=== PATIENT | female | born 1985 | race Caucasian/White ===

== ENCOUNTER 2016-08-22 12:19 | Inpatient (IN) | payer OTHER ==
[~2016-08-22] VITALS: Ht 154.9 cm; Wt 92.5 kg
[~2016-08-22 12:19] MED LIST: HYDR-3580 PO; PRENCAP6 PO
--- NOTE | 2016-10-17 13:47 | MH ---
cc: CINTHIA MCKEON M.D. DATE OF ADMISSION: 10/18/2016 DATE OF : 1985 CHIEF COMPLAINT Term anterior for repeat elective section and tubal ligation. HISTORY OF PRESENT ILLNESS The patient is a 31-year-old female, 3, para 2, two previous sections, who presents at 39 weeks for elective repeat with elective sterilization by tubal ligation. The patient denies any significant complaints related to uterine contractions, bleeding, shortness of breath, chest pain, fever, nausea, vomiting or vaginal bleeding. PAST MEDICAL/OB HISTORY The patient has an uncomplicated history. The patient's blood type is O+. She is group-B strep negative. The patient has a history of diet-controlled gestational diabetes which has been stable throughout. Estimated weight is approximately 7 pounds 8 ounces. The patient has been diagnosed as a cystic fibrosis carrier. Her is negative. ALLERGIES CODEINE. MEDICATIONS She currently takes vitamins only. PAST SURGICAL HISTORY section x2 in 2009 and 2012 with healthy male infants. FAMILY HISTORY Noncontributory. 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 She denies any use of alcohol, tobacco or illicit substances. PHYSICAL EXAMINATION GENERAL: The patient is a well-appearing, well-nourished female in no acute distress. VITAL SIGNS: Stable. Blood pressure 108/62. Weight 207 pounds. She is 5 feet 1 inch. HEENT/NECK: No adenopathy or thyromegaly. LUNGS: Clear in all [place]. CARDIAC: Regular rate and rhythm without murmur, rub or gallop. ABDOMEN: Gravid, full-term. PELVIC: Deferred. EXTREMITIES: Symmetrical full range of motion. No cyanosis, clubbing or edema. NEUROLOGIC: Grossly intact, nonfocal. ASSESSMENT AND PLAN The patient has a 39-week intrauterine gestation with an estimated date of confinement of October 25, 2016 for elective repeat section and tubal ligation. GBS status is negative. The patient is a cystic fibrosis carrier. She has a history of mild gestational diabetes with excellent control with diet alone. MD JORDON Peñaloza/AMA /1:16 PM /1:34 PM
[2016-10-18] VITALS (11 sets, daily range): BP systolic 84–119; BP diastolic 52–62; PULSE 18–91; RESP 18; TEMP 97.1–98; O2SAT 96–97
[2016-10-18] MEDS ORDERED: CITRIC ACID-SODIUM CITRATE LIQ 30 ML UDC PO SCH (07:45)
[2016-10-18 07:48] LABS: AUTOMATED NEUTROPHIL # 9.1 TH/MM3 (1.8-7.7); BASOPHIL % 0.1 % (0.0-2.0); EOSINOPHIL # 0.1 TH/MM3 (0-0.4); HEMATOCRIT 34.6 % (35.0-46.0); HEMO FLAGS DIFF FINAL; LYMPH % 14.5 % (9.0-44.0); LYMPHOCYTE # 1.7 TH/MM3 (1.0-4.8); MEAN CORPUSCULAR HEMOGLOBIN 27.6 PG (27.0-34.0); MEAN CORPUSCULAR HGB CONC 33.3 % (32.0-36.0); MONO % 5.4 % (0.0-8.0); PLATELET COUNT 252 TH/MM3 (150-450); RED BLOOD COUNT 4.17 MIL/MM3 (4.00-5.30); RED CELL DISTRIBUTION WIDTH 14.4 % (11.6-17.2); WHITE BLOOD COUNT 11.6 TH/MM3 (4.0-11.0)
[2016-10-18] MEDS ORDERED: LACTATED RINGER'S 1000 ML IV ONE (08:00)
[2016-10-18] MEDS ORDERED: ceFAZolin 2 GM PREMIX 50 ML IV SCH (08:00)
[2016-10-18] MEDS: LACTATED RINGER'S 1000 ML IV SCH (08:05)
[2016-10-18 08:17] LABS: BACTERIA, URINE RARE /hpf; BLOOD, URINE NEG (NEG); COMMENT (UR) CULT NOT INDICATED; CULTURE IF INDICATED CULT NOT INDICATED; GLUCOSE,URINE NEG (NEG); KETONE, URINE 10 mg/dL (NEG); MUCUS URINE FEW /lpf (OCC); NITRITE,URINE NEG (NEG); SQUAMOUS EPITHELIAL CELL URINE 3 /hpf (0-5); TRANSITIONAL EPI CELLS, URINE <1 /hpf; URINE COLOR YELLOW (YELLW/STRAW)
[2016-10-18] MEDS ORDERED: ONDANSETRON HCL 4 MG/2 ML VIAL ONE (08:19)
[2016-10-18] MEDS ORDERED: OXYTOCIN 10 UNIT/ML AMP ONE (08:19)
[2016-10-18] MEDS ORDERED: MORPHINE SULFATE PF 5 MG/10 ML VIAL ONE (08:19)
[2016-10-18] MEDS ORDERED: ACETAMINOPHEN 1000 MG/100 ML VIAL IV ONE ×2 (08:20→08:30)
[2016-10-18] MEDS ORDERED: ONDANSETRON HCL 4 MG/2 ML VIAL IV PUSH PRN (08:30)
[2016-10-18] MEDS ORDERED: OXYTOCIN 30 UNITS-500ML PREMIX 500 ML IV ONE (08:30)
[2016-10-18] MEDS ORDERED: ACETAMINOPHEN/HYDROcodone 325 MG/10 MG TAB PO PRN (08:30)
[2016-10-18] MEDS ORDERED: SODIUM CHLORIDE 0.9% FLUSH 10 ML FLUSH IV FLUSH PRN (08:30)
[2016-10-18] MEDS ORDERED: ACETAMINOPHEN 325 MG TAB PO PRN (08:30)
[2016-10-18] MEDS ORDERED: SIMETHICONE 80 MG CHEWABLE TAB PO PRN (08:30)
[2016-10-18] MEDS ORDERED: EPIDURAL-NALOXONE HCL 0.4 MG/ML AMP IV PRN (08:58)
[2016-10-18] MEDS ORDERED: EPIDURAL-NO SYSTEMIC NARCOTICS PRN (08:58)
[2016-10-18] MEDS ORDERED: EPIDURAL-DIPHENHYDRAMINE HCL 50 MG CAP PO PRN (08:58)
[2016-10-18] MEDS ORDERED: EPIDURAL-DO NOT ADMINISTER ANTICOAGULANTS PRN (08:58)
[2016-10-18] MEDS ORDERED: EPIDURAL-DIPHENHYDRAMINE HCL 50 MG/ML VIAL IV PUSH PRN (08:58)
[2016-10-18] MEDS: SODIUM CHLORIDE 0.9% FLUSH 10 ML FLUSH IV FLUSH SCH ×2 (09:00→21:00)
--- NOTE | 2016-10-18 09:48 | PD.OB.DELI ---
Procedure Note Section Procedure Performed by Ricci Michelle Procedure: Repeat Low Transverse Sec Indication for delivery: Desired elective repeat Informed consent obtained: For anesthesia, For procedure Confirmed correct: Patient, Procedure, Site, Time-out taken Anesthesia: Spinal Medication prior to procedure: As documented in eMAR Monitoring during procedure: Blood pressure monitoring, manager monitoring, doppler, monitor, Pulse oximetry Urinary catheter: Inserted using sterile technique, To dependent drainage Sterile preparation: Duraprep, In usual fashion Position: Supine with wedge to right side, Supine with safety belt applied Operative Features Skin Incision: Pfannenstiel Uterine Incision: Low transverse w/knife / scissors Membranes Ruptured: Artificially Presentation: Occiput anterior Delivery of infant: Assisted (Kiwi vacuum x1 pull) : Male One Minute : 9 Five Minute : 9 Weight: 7/15 Status of infant: Viable Placenta delivered: Intact Medications: Antibiotics, Oxytocin Procedure tolerated: Well Maternal Condition: Stable Condition: Stable Ricci Michelle MD Oct 18, 2016 09:48
[2016-10-18] MEDS ORDERED: LACTATED RINGER'S 1000 ML INJ 1,000 ML IV ONE (10:06)
[2016-10-18] MEDS ORDERED: ePHEDrine/NS 50 MG/5 ML SYR IV ONE (10:06)
[2016-10-18] MEDS ORDERED: OXYTOCIN 30 UNITS-500ML PREMIX 500 ML ONE (10:15)
[2016-10-18] MEDS ORDERED: LACTATED RINGER'S 1000 ML INJ 1,000 ML IV SCH (13:18)
[2016-10-18] MEDS ORDERED: PROMETHAZINE INJ 25 MG/ML VIAL IM PRN (16:30)
[2016-10-18] MEDS ORDERED: OXYTOCIN 30 UNITS-500ML PREMIX 500 ML IV PRN (18:30)
[2016-10-19 00:10] VITALS: BP 84/50; PULSE 72; RESP 20
[2016-10-19] MEDS: ACETAMINOPHEN/HYDROcodone 325 MG/5 MG TAB PO PRN ×2 (00:17→16:51)
[2016-10-19] MEDS: DOCUSATE SODIUM 50 MG/SENNA 8.6 MG TAB PO PRN (00:17)
[2016-10-19] MEDS: IBUPROFEN 600 MG TAB PO PRN ×3 (00:17→16:51)
[2016-10-19 00:25] VITALS: TEMP 97.9
[2016-10-19 03:38] VITALS: BP 83/48; PULSE 64; RESP 18; TEMP 98
[2016-10-19 06:00] LABS: AUTOMATED NEUTROPHIL # 10.5 TH/MM3 (1.8-7.7); BASOPHIL % 0.2 % (0.0-2.0); EOSINOPHIL # 0.1 TH/MM3 (0-0.4); HEMATOCRIT 30.5 % (35.0-46.0); HEMO FLAGS DIFF FINAL; LYMPH % 12.2 % (9.0-44.0); LYMPHOCYTE # 1.6 TH/MM3 (1.0-4.8); MEAN CELL VOLUME 84.3 FL (80.0-100.0); MEAN CORPUSCULAR HEMOGLOBIN 27.8 PG (27.0-34.0); MEAN CORPUSCULAR HGB CONC 32.9 % (32.0-36.0); MONO % 6.2 % (0.0-8.0); NEUT % 80.4 % (16.0-70.0); PLATELET COUNT 210 TH/MM3 (150-450); RED BLOOD COUNT 3.62 MIL/MM3 (4.00-5.30); RED CELL DISTRIBUTION WIDTH 14.7 % (11.6-17.2); WHITE BLOOD COUNT 13.1 TH/MM3 (4.0-11.0)
--- NOTE | 2016-10-19 07:49 | HHI.OB ---
Subjective Post Operative Day: 1 Remarks POD#1, Doing well Objective Vitals/I&O Vital Signs Date Time Temp Pulse Resp B/P Pulse Ox O2 Delivery O2 Flow Rate FiO2 10/19/16 07:05 20 10/19/16 03:38 83/48 10/19/16 03:38 98.0 64 18 10/19/16 01:17 18 10/19/16 00:25 97.9 10/19/16 00:10 72 20 84/50 10/18/16 22:14 18 10/18/16 22:14 69 84/58 10/18/16 22:14 98.0 10/18/16 16:40 97.1 81 18 92/62 10/18/16 11:13 97.6 10/18/16 11:13 80 18 94/62 10/18/16 10:55 78 18 103/55 97 10/18/16 10:49 97.6 10/18/16 10:40 75 18 109/59 97 10/18/16 10:25 18 10/18/16 10:25 76 114/55 97 10/18/16 10:11 96 10/18/16 10:10 112/52 10/18/16 10:10 91 10/18/16 10:10 18 18 10/18/16 09:56 90 10/18/16 09:56 20 10/18/16 09:55 119/55 10/18/16 09:55 97.9 18 97 Result Diagram: 10/19/16 0459 Objective Remarks GENERAL: Well-nourished, well-developed patient. CARDIOVASCULAR: Regular rate and rhythm without murmurs, gallops, or rubs. RESPIRATORY: Breath sounds equal bilaterally. No accessory muscle use. ABDOMEN/GI: Abdomen soft, non-tender, bowel sounds present. Incision: Clean, dry and intact. Fundus: Firm, non-tender at umbilicus. GENITOURINARY: Light to moderate bleeding. EXTREMITIES: No cyanosis or edema, non-tender, without signs of DVT. Medications and IVs Current Medications Medications (Trade) Dose Ordered Sig/Danial Route Start Time Stop Time Status Last Admin Lactated Ringer's 1,000 ml @ 150 mls/hr Q6H40M IV 10/18/16 08:30 10/18/16 08:05 (Lr 1000 ml Inj) 1,000 ml @ 100 mls/hr Q10H IV 10/18/16 13:18 10/19/16 09:17 (NS Flush) 2 ml BID IV FLUSH 10/18/16 09:00 (NS Flush) 2 ml UNSCH PRN IV FLUSH 10/18/16 08:30 (Mylicon Chew) 80 mg QID PRN PO 10/18/16 08:30 (Tylenol) 650 mg Q6H PRN PO 10/18/16 08:30 (Motrin) 600 mg Q6H PRN PO 10/18/16 08:30 10/19/16 06:05 (Deb-Colace) 2 tab Q12H PRN PO 10/18/16 08:30 10/19/16 00:17 (M-M-R Ii Inj) 0.5 ml ONCE ONCE SQ 10/19/16 16:00 10/19/16 16:01 (Boostrix Inj) 0.5 ml ONCE ONCE IM 10/19/16 16:00 10/19/16 16:01 (Zofran Inj) 4 mg Q6H PRN IV PUSH 10/18/16 08:30 10/18/16 14:13 ([place] 5-325 Mg) 1 tab Q4H PRN PO 10/18/16 08:30 10/19/16 00:17 ([place] 10-325 Mg) 1 tab Q4H PRN PO 10/18/16 08:30 Miscellaneous Information NO SYSTEMIC NARCOTICS TO BE GIVEN FO... UNSCH PRN .XX 10/18/16 08:58 10/19/16 08:57 (Narcan Inj) 0.4 mg UNSCH PRN IV 10/18/16 08:58 10/19/16 08:57 (Benadryl Inj) 25 mg Q6H PRN IV PUSH 10/18/16 08:58 10/19/16 08:57 (Benadryl) 50 mg Q6H PRN PO 10/18/16 08:58 10/19/16 08:57 Miscellaneous Information ALL NURSING DEPARTMENTS UNSCH PRN .XX 10/18/16 08:58 10/19/16 08:57 (Phenergan Inj) 25 mg Q6H PRN IM 10/18/16 16:30 10/18/16 16:34 Assessment/Plan Assessment and Plan POD#1; Stable,good pain control. Discharge Planning Plan for POD #2-3. Ricci Michelle MD Oct 19, 2016 07:49
[2016-10-19 07:50] VITALS: BP 103/50; PULSE 63; RESP 18; TEMP 97.1
[2016-10-19] MEDS ORDERED: MEASLES, MUMPS, RUBELLA VACCINE 0.5 ML VIAL SQ ONE (16:00)
[2016-10-19] MEDS ORDERED: DIPHTH/TETANUS/ACEL PERTUSSIS (BOOSTER) 0.5 ML VIAL/PFS IM ONE (16:00)
[2016-10-19 19:51] VITALS: BP 94/63; PULSE 65; RESP 18; TEMP 97.9
[2016-10-20] MEDS: ACETAMINOPHEN/HYDROcodone 325 MG/5 MG TAB PO PRN ×3 (00:33→18:17)
[2016-10-20] MEDS: IBUPROFEN 600 MG TAB PO PRN ×3 (00:33→18:17)
[2016-10-20 07:55] VITALS: BP 106/61; PULSE 70; RESP 18; TEMP 98.2
--- NOTE | 2016-10-20 08:05 | HHI.OB ---
Subjective Post Operative Day: 2 Remarks no complaints, Objective Vitals/I&O Vital Signs Date Time Temp Pulse Resp B/P Pulse Ox O2 Delivery O2 Flow Rate FiO2 10/19/16 19:51 97.9 65 18 94/63 Result Diagram: 10/19/16 0459 Objective Remarks GENERAL: Well-nourished, well-developed patient. CARDIOVASCULAR: Regular rate and rhythm without murmurs, gallops, or rubs. RESPIRATORY: Breath sounds equal bilaterally. No accessory muscle use. ABDOMEN/GI: Abdomen soft, non-tender, bowel sounds present. Incision: jennifer Clean, dry and intact. Fundus: Firm, non-tender at umbilicus. GENITOURINARY: Light to moderate bleeding. EXTREMITIES: No cyanosis or edema, non-tender, without signs of DVT. Medications and IVs Current Medications Medications (Trade) Dose Ordered Sig/Danial Route Start Time Stop Time Status Last Admin (Lr 1000 ml Inj) 1,000 ml @ 150 mls/hr Q6H40M IV 10/18/16 08:30 10/18/16 08:05 (NS Flush) 2 ml BID IV FLUSH 10/18/16 09:00 (NS Flush) 2 ml UNSCH PRN IV FLUSH 10/18/16 08:30 (Mylicon Chew) 80 mg QID PRN PO 10/18/16 08:30 (Tylenol) 650 mg Q6H PRN PO 10/18/16 08:30 (Motrin) 600 mg Q6H PRN PO 10/18/16 08:30 10/20/16 00:33 (Deb-Colace) 2 tab Q12H PRN PO 10/18/16 08:30 10/19/16 00:17 (Zofran Inj) 4 mg Q6H PRN IV PUSH 10/18/16 08:30 10/18/16 14:13 ([place] 5-325 Mg) 1 tab Q4H PRN PO 10/18/16 08:30 10/20/16 00:33 ([place] 10-325 Mg) 1 tab Q4H PRN PO 10/18/16 08:30 (Phenergan Inj) 25 mg Q6H PRN IM 10/18/16 16:30 10/18/16 16:34 Assessment/Plan Assessment and Plan POD#2; Stable,good pain control. Discharge Planning Plan for POD #2-3. Attending Attestation pt seen by Maria Isabel López MD Oct 20, 2016 08:05
[2016-10-20] MEDS: DOCUSATE SODIUM 50 MG/SENNA 8.6 MG TAB PO PRN (12:06)
--- NOTE | 2016-10-20 16:23 | HHI.DCPOC ---
Discharge Care Plan Diagnosis: (1) delivery delivered Your Health Problems Are: delivery Report Symptoms to Your Doctor -Temperature above 100.5 degrees -Redness, of incision or excessive or foul smelling drainage -Unusual pain or calf pain -Increased vaginal bleeding -Painful or difficulty urinating -Feelings of extreme sadness or anxiety after 2 weeks Goals to Promote Your Health * To prevent worsening of your condition and complications * To maintain your health at the optimal level Directions to Meet Your Goals Take your medications as prescribed Follow your dietary instruction Follow activity as directed Ensure plenty of rest for recovery Drink fluids for hydration Keep your appointments as scheduled Take your immunizations and boosters as scheduled If your symptoms worsen call your PCP, if no PCP go to Urgent Care Center or Emergency Room Smoking is Dangerous to Your Health. Avoid second hand smoke Call the 24-hour crisis hotline for domestic abuse at Chloe Argueta MD Oct 20, 2016 16:23
[2016-10-20] MEDS ORDERED: HYDR-3516 PO (16:25)
[2016-10-20] MEDS ORDERED: SENN1TAB PO (16:25)
[2016-10-20] MEDS ORDERED: IBUP-232 PO (16:25)
--- NOTE | 2016-10-20 17:28 | MP ---
cc: RICCI MICHELLE M.D. DATE OF SURGERY: 10/18/2016. PREOPERATIVE DIAGNOSIS: 1. Term intrauterine gestation. 2. History of gestational diabetes, diet-controlled. 3. Previous section x2. 4. Elective sterilization. 5. History of cystic fibrosis carrier. POSTOPERATIVE DIAGNOSIS: 1. Term intrauterine gestation. 2. History of gestational diabetes, diet-controlled. 3. Previous section x2. 4. Elective sterilization. 5. History of cystic fibrosis carrier. OPERATIVE PROCEDURE PERFORMED: Repeat low transverse section, bilateral tubal ligation using modified [place] technique and delivery of male . SURGEON: Ricci Michelle MD. ANESTHESIA Spinal by Dr. Villalobos. ESTIMATED BLOOD LOSS: 600 mL. DRAINS: Padron catheter to gravity. FINDINGS: Male delivered. Nuchal cord x2 which was loose. Clear fluid. Apgars are 9 at one minute and 9 at five. The baby weighed 7 pounds, 15 ounces. INDICATIONS FOR THE PROCEDURE: For elective repeat section and consented for elective sterilization at the time of her section. DESCRIPTION OF THE PROCEDURE IN DETAIL: The patient preop received Ancef 2 grams. The patient was taken to the operating room and under the direction of Dr. Villalobos, had a spinal anesthetic placed with good result. The patient was then prepped and draped in the usual sterile fashion. A Padron catheter was inserted by sterile technique. Sequentials were placed on the lower extremities for VT prophylaxis. She had excellent pain control. A time out was conducted and agreed by all present in the room. After she was adequately prepped and draped, a previous Pfannenstiel incision was utilized using a #10 blade carrying the incision through the skin down through the subcutaneous layer and the previous scar to identify the fascia, which was scored sharply and then dissected away from the rectus muscle allowing visualization of the midline and then opening the midline to the peritoneum. A bladder blade was placed over the pubic symphysis. A transverse incision was made in the lower uterine segment with clear fluid. The was delivered through the uterine incision with the aid of a vacuum extractor to minimize trauma to the lower uterine segment and the infant was delivered easily without difficulty. Nuchal cord was easily reduced times two. The infant had immediate good tone and cry upon delivery. Cord was doubly clamped and cut and the was taken to the isolette by the nurse present. Cord samples obtained for typing. The placenta was then removed intact and sent for donation. The uterus was exteriorized. The lower uterine segment was easily delineated. Placenta was removed with no retained tissue. The lower uterine segment was then closed with a double layer using #1 Monocryl first with a running locking suture followed by a second imbricating suture. Fallopian tubes were identified. The tube was elevated with a Coy and the mesentery was opened using the Bovie using a combination of cutting and coag and then a suture of 2-0 plain was placed proximally and distally and each fallopian tube was removed from the mid isthmic portion including the ampullary portion of each tube. Hemostasis was confirmed good result was noted bilaterally. Tubes were labeled appropriately right and left and then the uterus was returned to its normal anatomic position in the pelvis. The pelvis was irrigated with warm normal saline and dried. All free blood and clot was removed. There was no active bleeding. Good hemostasis was confirmed. Full count was made and correct. At that point, the peritoneum was then closed with a running suture 2-0 Monocryl. The rectus muscles was reapproximated with interrupted suture of 2-0 Monocryl and then the fascia was closed with 0 Vicryl in a simple running fashion. Subcutaneous space was irrigated. Any active bleeding was briefly cauterized and the space was reapproximated using a running suture of 2-0 Monocryl. Hassell were used to the read reapproximate the skin edge and a [place] dressing was applied. At the end of the case final count was correct. The patient was stable and the was doing well in the regular nursery. MD JORDON Peñaloza/ALLEN /12:10 PM /5:10 PM
[2016-10-20 20:20] VITALS: BP 121/60; PULSE 79; RESP 16; TEMP 98.4
[2016-10-21] MEDS: ACETAMINOPHEN/HYDROcodone 325 MG/5 MG TAB PO PRN ×2 (05:39→15:18)
[2016-10-21] MEDS: IBUPROFEN 600 MG TAB PO PRN ×2 (05:39→15:18)
[2016-10-21] MEDS: SODIUM CHLORIDE 0.9% FLUSH 10 ML FLUSH IV FLUSH SCH (07:36)
[2016-10-21] MEDS: LACTATED RINGER'S 1000 ML IV SCH ×2 (07:36→16:30)
--- NOTE | 2016-10-21 08:09 | HHI.OB ---
Subjective Post Operative Day: 3 Remarks Doing well, pain is controlled baby is doing well Bleeding is normal Tolerating diet Objective Vitals/I&O Vital Signs Date Time Temp Pulse Resp B/P Pulse Ox O2 Delivery O2 Flow Rate FiO2 10/20/16 20:20 98.4 79 16 121/60 Result Diagram: 10/19/16 0459 Objective Remarks GENERAL: Well-nourished, well-developed patient. CARDIOVASCULAR: Regular rate and rhythm without murmurs, gallops, or rubs. RESPIRATORY: Breath sounds equal bilaterally. No accessory muscle use. ABDOMEN/GI: Abdomen soft, non-tender, bowel sounds present. Incision: jennifer Clean, dry and intact. Fundus: Firm, non-tender at umbilicus. GENITOURINARY: Light to moderate bleeding. EXTREMITIES: No cyanosis or edema, non-tender, without signs of DVT. Medications and IVs Current Medications Medications (Trade) Dose Ordered Sig/Danial Route Start Time Stop Time Status Last Admin (Lr 1000 ml Inj) 1,000 ml @ 150 mls/hr Q6H40M IV 10/18/16 08:30 10/18/16 08:05 (NS Flush) 2 ml BID IV FLUSH 10/18/16 09:00 (NS Flush) 2 ml UNSCH PRN IV FLUSH 10/18/16 08:30 (Mylicon Chew) 80 mg QID PRN PO 10/18/16 08:30 (Tylenol) 650 mg Q6H PRN PO 10/18/16 08:30 (Motrin) 600 mg Q6H PRN PO 10/18/16 08:30 10/21/16 05:39 (Deb-Colace) 2 tab Q12H PRN PO 10/18/16 08:30 10/20/16 12:06 (Zofran Inj) 4 mg Q6H PRN IV PUSH 10/18/16 08:30 10/18/16 14:13 ([place] 5-325 Mg) 1 tab Q4H PRN PO 10/18/16 08:30 10/21/16 05:39 ([place] 10-325 Mg) 1 tab Q4H PRN PO 10/18/16 08:30 (Phenergan Inj) 25 mg Q6H PRN IM 10/18/16 16:30 10/18/16 16:34 Assessment/Plan Assessment and Plan POD#3 Anemia will start fe after the narcotics Routine care Discharge Planning Plan for today Krzysztof Cabrera MD Oct 21, 2016 08:09
[2016-10-21 09:25] VITALS: BP_SYST 111; BP_DIAS 64; BP_DIAS 67; PULSE 64; RESP 18; TEMP 98.2
== END 2016-10-21 18:32 | disposition home or self-care (01) | DRG 766 ==
LOC: H2EB 10-18 06:46 → H1EA 10-18 11:16
PROVIDERS: ADMIT Obstetrics & Gynecology; ATTEND Obstetrics & Gynecology
PROC: 10D00Z1 Extraction of Products of Conception, Low, Open Approach (ICD-10-PCS; principal; 2016-10-18)
PROC: 0UB70ZZ Excision of Bilateral Fallopian Tubes, Open Approach (ICD-10-PCS; 2016-10-18)
DX: O24.420 Gestational diabetes mellitus in childbirth, diet controlled (principal); D50.9 Iron deficiency anemia, unspecified; O69.81X0 Labor and delivery complicated by cord around neck, without compression, not applicable or unspecified; Z37.0 Single live birth; Z30.2 Encounter for sterilization; O34.211 Maternal care for low transverse scar from previous cesarean delivery; Z3A.39 39 weeks gestation of pregnancy; Z14.1 Cystic fibrosis carrier; O90.81 Anemia of the puerperium
CPT/HCPCS: 59025; 81001; 82948; 85025; 86850; 86900; 86901; 88302; J0131; J0690; J2274; J2405; J2550; J2590; J7120

== ENCOUNTER 2017-04-19 19:21 | Emergency (ER) | payer OTHER ==
[~2017-04-19] VITALS: Ht 154.9 cm; Wt 79.5 kg
[~2017-04-19 19:21] MED LIST changes: +HYDR-3516 PO; -HYDR-3580 PO; +IBUP-232 PO; +SENN1TAB PO
[2017-04-19 19:26] VITALS: BP 120/92; PULSE 83; RESP 14; TEMP 99; O2SAT 99
--- NOTE | 2017-04-19 20:08 | RADRPT ---
EXAM DATE/TIME: 04/19/2017 19:57 [facility] COMPARISON: No previous studies available for comparison. INDICATIONS : Left ankle pain after twisting ankle. MEDICAL HISTORY : None. SURGICAL HISTORY : None. ENCOUNTER: Initial ACUITY: 2 days PAIN SCORE: 10/10 LOCATION: Left lateral ankle. FINDINGS: Three view exam was performed of the left ankle. There is a nondisplaced fracture involving the dista l fibula. There is soft tissue swelling adjacent to the fracture. No joint dislocation is seen. The r est of the bony structures are grossly intact. CONCLUSION: Nondisplaced fracture involving the distal fibula. Enrrique Oshea MD on April 19, 2017 at 20:05 Board Certified Radiologist. This report was verified electronically.
[2017-04-19] MEDS ORDERED: IBUP1TAB7 PO (20:26)
[2017-04-19] MEDS ORDERED: HYDR-3516 PO (20:26)
[2017-04-19] MEDS ORDERED: ACETAMINOPHEN/HYDROcodone 325 MG/5 MG TAB PO ONE (20:30)
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
== END 2017-04-19 21:46 | disposition home or self-care (01) ==
LOC: NEPK 19:21
DX: S82.832A Other fracture of upper and lower end of left fibula, initial encounter for closed fracture (principal); W18.42XA Slipping, tripping and stumbling without falling due to stepping into hole or opening, initial encounter; Z88.5 Allergy status to narcotic agent; Z79.899 Other long term (current) drug therapy
CPT/HCPCS: 29515; 73610; 99283; E0113